=== PATIENT | male | born 1990 | race Caucasian/White ===

== ENCOUNTER 2023-04-28 09:43 | Emergency (ER) | payer OTHER ==
[2023-04-28 09:56] VITALS: BP 118/76; RESP 20; BMI 31.2
[2023-04-28 11:49] LABS: BASO % 0.8 % (0-2.0); EOS % 3.7 % (0-4.5); HEMATOCRIT 40.2 % (35.4-49); HEMOGLOBIN 13.9 GM/dL (11.7-16.9); LYMPH % 25.3 % (8-40); MCH 29.9 pg (25.7-33.7); MCHC 34.6 g/dl (32.0-35.9); MEAN CELL VOLUME 86.3 fl (80-96); MEAN PLT VOLUME 8.5 fl (7.5-11.1); MONO % 8.1 % (3.8-10.2); NEUT % 62.1 % (42.8-82.8); PLATELET COUNT 323 10^3/uL (134-434); RBC 4.66 M/mm3 (4.00-5.60); RDW 13.3 % (11.9-15.9); WHITE BLOOD COUNT 7.5 K/mm3 (4.0-10.0)
[2023-04-28 12:02] LABS: POTASSIUM 4.2 mmol/L (3.5-5.1)
[2023-04-28 12:04] LABS: CALCIUM 9.3 mg/dL (8.5-10.1)
[2023-04-28 12:05] LABS: ALBUMIN 4.2 g/dl (3.4-5.0)
[2023-04-28 12:08] LABS: CREATININE 0.9 mg/dL (0.55-1.3)
[2023-04-28 12:10] LABS: BILIRUBIN,TOTAL 0.7 mg/dL (0.2-1); TOT PROT 7.5 g/dl (6.4-8.2)
[2023-04-28 15:14] VITALS: PULSE 46; TEMP 98.3
== END 2023-04-28 15:35 | disposition home or self-care (01) ==
LOC: JER 09:43
DX: R20.0 Anesthesia of skin (principal); R20.2 Paresthesia of skin
CPT/HCPCS: 36415; 70450-TC; 71046-TC-FY; 80053; 84484; 85025; 93005; 93010; 99285-25